=== PATIENT | female | born 1985 | race Caucasian/White ===

== ENCOUNTER 2021-05-19 00:21 | Day surgery (SDC) | payer BC, SELFPAY ==
[2021-05-07 14:49] VITALS: BMI 36.6
[2021-05-19 12:28] VITALS: BP 128/91; PULSE 112; RESP 18; TEMP 36.6; O2SAT 97
--- NOTE | 2021-05-19 12:38 | WPDANESEPPF ---
Anes - Initial Pre Proc Eval Procedure: Operation Date: 05/19/21 13:45 Proposed Procedures p Colonoscopy - Shai Lew MD Date/Time: 05/19/21 12:38 Surgeon: Shai Lew MD Pre Op Diagnosis: diarrhea Patient Data Age: 35 Gender: F Height: 1.57 m Weight: 88.1 kg Last Vital Signs Temp 36.6 C 05/19/21 12:28 Pulse 112 H 05/19/21 12:28 Resp 18 05/19/21 12:28 BP 128/91 H 05/19/21 12:28 Pulse Ox 97 05/19/21 12:28 Allergies Allergy/AdvReac Type Severity Reaction Status Date / Time No Known Allergies Allergy Verified 05/19/21 12:27 Home Medications Medication Instructions Recorded Confirmed Type amitriptyline 25 mg tablet 25 mg PO QHS 03/25/21 05/07/21 History diphenoxylate-atropine 2.5 1 tablet PO QID PRN 03/25/21 05/07/21 History mg-0.025 mg tablet hyoscyamine sulfate 0.125 mg PO Q4H PRN 05/07/21 05/07/21 History Patient hx anesthesia problems: none Family hx anesthesia problems: none Results Review: All pre-operative results and documents have been reviewed as part of the pre-operative evaluation. [facility] Past Medical History Medical History Factor 5 Leiden mutation, heterozygous Obese Surgical History Surgical History Hx of tonsillectomy Previous section Social History Social History Smoking status: Never smoker Alcohol intake: never Substance use: never Living arrangements: with family Spiritual care concerns: No Anes - Eval Final PreProcedure Day of Procedure 05/19/21 12:38 Patient weight: obese Heart: regular rate and rhythm Lungs: clear to auscultation Airway: Mallampati scale class II Neurological: alert and oriented Last oral intake: >/= 8 hours ASA classification: II Emergent: no Anesthetic plan: proceed Anesthesia type and monitoring: general GIVS and standard monitoring Results Review: All pre-operative results and documents have been reviewed as part of the pre-operative evaluation. Informed Consent: The patient's anesthetic plan and its attendant risks and benefits were discussed with the patient/family/POA. Questions were solicited and answers provided to the satisfaction of the patient/family/POA.
[2021-05-19] MEDS: LACTATED RINGERS 1,000 ML 150 ML IV CONT (12:41)
--- NOTE | 2021-05-19 13:00 | PM.HPGS ---
History of Present Illness History of Present Illness Consent: Risks, benefits, and alternatives have been discussed and questions answered. Patient agrees to proceed with procedure. Chief complaint: diarrhea Narrative: Radha Donaldson is a 35 year old female with chronic loose stool, serology for celiac normal, never had colonoscopy Review of Systems Constitutional: Constitutional: Denies headache(s) and Denies weakness Eyes: Eyes: Denies blurry vision ENT: Reports Normal hearing present, Denies headache(s) and Denies neck pain Cardiovascular: Cardiovascular: Denies chest pain and Denies dyspnea Respiratory: Respiratory: Denies dyspnea Gastrointestinal: Gastrointestinal: Reports no additional gastrointestinal complaints Genitourinary: Genitourinary: Denies dysuria Musculoskeletal: Musculoskeletal: Denies neck pain Integumentary/Breasts: Skin/Breast: Denies dry skin Neurologic: Reports Normal hearing present, Denies headache(s) and Denies weakness Psychiatric: Psychiatric: Denies anxiety Endocrine: Endocrine: Denies change in body appearance Hematologic/Lymphatic: Hematologic/Lymphatic: Denies easy bleeding Allergic/Immunologic: Allergic/Immunologic: Denies urticaria PMF Past Medical History Medical History (Updated 05/19/21 @ 13:00 by Shai Lew MD) Diarrhea Factor 5 Leiden mutation, heterozygous Obese Surgical History Surgical History Hx of tonsillectomy Previous section Social History Social History Smoking status: Never smoker Alcohol intake: never Substance use: never Living arrangements: with family Spiritual care concerns: No Meds Home Medications and Allergies Home Medications Medication Instructions Recorded Confirmed Type amitriptyline 25 mg tablet 25 mg PO QHS 03/25/21 05/07/21 History diphenoxylate-atropine 2.5 1 tablet PO QID PRN 03/25/21 05/07/21 History mg-0.025 mg tablet hyoscyamine sulfate 0.125 mg PO Q4H PRN 05/07/21 05/07/21 History Allergies Allergy/AdvReac Type Severity Reaction Status Date / Time No Known Allergies Allergy Verified 05/19/21 12:27 Vital Signs Vital Signs - 24 hr 05/19/21 12:28 Temperature 97.8 F Pulse Rate 112 H Respiratory Rate 18 Blood Pressure 128/91 H Pulse Oximetry 97 Exam Const: General: comfortable and no acute distress HENMT: General nose exam: Normal nares present Eyes: General: appearance normal, both eyes and all related structures Neck: Neck: no JVD Resp: Auscultation: clear to auscultation bilaterally Cardio: Rate: regular rate Rhythm: regular rhythm GI: Inspection: non-distended GI Palp: Yes Soft to palpation Skin: General skin exam: normal color Neuro: General: gait normal Speech: normal speech Extrem: General: normal to inspection Psych: Mental Status: mental status grossly normal Assessment and Plan Assessment and plan (1) Diarrhea: Code(s): R19.7 - Diarrhea, unspecified Status: Acute Assessment and Plan: probably ibs related but will proceed with colonoscoy and random bx
[2021-05-19 13:03] VITALS: BP 106/72; PULSE 119; RESP 25; O2SAT 93
[2021-05-19 13:13] VITALS: BP 128/68; PULSE 71; RESP 16; O2SAT 96
[2021-05-19 13:23] VITALS: BP 117/83; PULSE 99; RESP 23; O2SAT 99
== END 2021-05-19 13:45 | disposition home or self-care (01) ==
PROVIDERS: PCP Internal Medicine; Visit Provider Internal Medicine Gastroenterology
PROC: 0DJD8ZZ Inspection of Lower Intestinal Tract, Via Natural or Artificial Opening Endoscopic (ICD-10-PCS; CPT 45378; principal; 2021-05-19 13:45)
DX: K52.9 Noninfective gastroenteritis and colitis, unspecified (principal); D68.51 Activated protein C resistance; E66.9 Obesity, unspecified; Z68.35 Body mass index [BMI] 35.0-35.9, adult
CPT/HCPCS: 45380; 88305; J2001; J2704; J7120

== ENCOUNTER 2024-11-26 14:56 | Outpatient (CLI) | payer BC, SELFPAY ==
--- NOTE | ~2024-11-26 | MR_ITS ---
EXAMINATION: MR brain/brain stem wo/w con DATE: 11/26/2024 15:41 INDICATION: Blurred vision. TECHNIQUE: Magnetic resonance imaging (MRI) of the brain and brainstem was performed without and with 20 mL MultiHance intravenous contrast. COMPARISON: None. FINDINGS: There is no intracranial hemorrhage, acute infarction, or abnormal intracranial mass lesion. There are 3 foci of increased T2-weighted signal intensity in the cerebral white matter, which is normal for the patient's age. The ventricles are normal in size. There is mild mucosal thickening in the ethmoid sinuses. The orbits are normal. The mastoid air cells are normal. IMPRESSION: 1. Normal brain. Reviewed, dictated and finalized at location E. IMPRESSION: 1. Normal brain.
--- OUTSIDE RECORDS SUMMARY | 2024-11-26 15:04 | XMS_ITS | Clinical Summary ---
Author Organization [facility] Address [address] [place] [address] Care Team Providers Care International Marketing Intern Name Role Phone Estefany Lamar MD Primary Care Provider [phone] Allergies Active Allergy Reactions Criticality Noted Date Comments Ketorolac Tromethamine Nausea And Vomiting 09/04 Medications prenat.vits,rosa maria, [id number] tablet Take 1 tablet by mouth daily Active estradioL (Estrace) 2 mg tablet Take 1 tablet (2 mg total) by mouth 2 (two) times a day 60 tablet 2 3 Active enoxaparin (LOVENOX) 40 mg/0.4 mL syringe Inject 0.4 mL (40 mg total) under the skin daily 12 mL 3 3 Active progesterone 50 mg/mL injection Inject 25mg to 100mg IM daily as directed by 20 mL 2 3 Active docusate sodium (COLACE) 50 mg capsuleIndicatio ns:constipation Take 1 capsule (50 mg total) by mouth 2 (two) times a day as needed for constipation Active chorionic gonadotropin (PREGNYL) 10,000 unit injection 3 Active ciclopirox (LOPROX) 0.77 % cream Apply topically 2 (two) times a day 2 Active diphenoxylate-at ropine (LOMOTIL) 2.5-0.025 mg per tablet Take 1 tablet by mouth daily as needed 2 Active doxycycline 100 mg tablet 4 Active leuprolide 1 mg/0.2 mL kit 3 Active Active Problems Problem Noted Date Diagnosed Date Prediabetes 02/10/2021 Anal skin tag 02/09/2021 [place] (generalized anxiety disorder) 02/09/2021 Irritable bowel syndrome with diarrhea 1 Recurrent major depressive disorder 02/09/2021 Overview (05/12/2023): Previously was on amitriptyline. Currently on sertraline. Stable symptoms. No suicidal ideations at this time. Abdominal pain 07/08/2020 Assessment & Plan (07/08/2020 1:42 PM CDT): Chronic diarrhea may be IBS. Lower concern for malabsorptive syndrome or IBD. Will get stool studies and labs as ordered. Right lower pain may be pelvic in nature although reassuring pelvic exam. Given recent ectopic , will get pelvic ultrasound to r/o complications from this. Essential tremor 07/06/2020 Overview (07/08/2020): . History of ectopic 07/06/2020 Overview (07/08/2020): Had this in Feb 2020, went through two rounds of methotrexate Heterozygous factor V Leiden mutation 05/14/2019 Overview (07/08/2020): Last A/P: Additionally, we discussed Ms. Donaldson's options for control. In the setting of her thrombophillia, we do not recommend any estrogen-containing contraceptives. The CDC rates progestin-only contraception as a 2, where the advantages outweigh the overall risk, in a patient with an inheritated thrombophilia. Therefore, Ms. Donaldson would be a suitable candidate for depo- provera, the Mirena IUD, and the minipill. Resolved Problems Problem Noted Date Diagnosed Date Resolved Date product of IVF 05/14/2019 07/06/2020 Overview (05/14/2019): -Planning on frozen embryo transfer for this subsequent -Discussed need for echo given IVF Immunizations Immunization Administration Dates Next Due Influenza, Unspecified 12/05/2019(Deferred: Nadiya ent Refused) MMR 10/25/2019 Pfizer SARS-CoV-2 Monovalent Vaccination (12+ Yrs) PURPLE 11/21/2020,10/30/2020 Tdap 11/23/2017 Surgical History Surgery Date Site/Laterality Comments TONSILECTOMY, ADENOIDECTOMY, BILATERAL MYRINGOTOMY AND TUBES 03/06/2004 - 03/05/2005 KNEE SURGERY SECTION, LOW TRANSVERSE OVUM / OOCYTE RETRIEVAL 06/23/2022 egg retrieval TRANSFER EMBRYO INTRAUTERINE 06/26/2022 Embryo Transfer 1 day 3 Medical History Medical History Date Comments Factor V Leiden product of IVF 05/14/2019 -Planning on frozen embryo transfer for this subsequent -Discussed need for echo given IVF Family History Medical History Relation Name Comments Heart attack Maternal Grandfather Blood Clot Maternal Grandmother Cholelithiasis Maternal Grandmother Colon cancer Maternal Grandmother Diabetes Maternal Grandmother Pancreatic cancer Maternal Grandmother Blood Clot Mother Diabetes Mother Hypertension Mother Blood Clot Other aunt Hypertension Paternal Grandmother Relation Name Status Comments Father Alive Maternal Grandfather Maternal Grandmother Mother Alive Other aunt Alive Paternal Grandmother Social History Tobacco Use Types Packs/Day Years Used Date Smoking Tobacco: Never Smokeless Tobacco: Never Alcohol Use Standard Drinks/Week Comments Never 0 (1 standard drink = 0.6 oz pur e alcohol) AUDIT-C Answer Date Recorded Frequency of Alcohol Consumption Never 04/10/2019 Average Number of Drinks Not on file 020 Frequency of Binge Drinking Not on file 07/2019 PHQ-2 Answer Date Recorded PHQ-2 Total Score (If total score is 3 or more points, staff should administer the PHQ-9) 0 07/06/2020 Personal Safety Answer Date Recorded Getting School Help Needed Not on file 08/11 Comments No Sex and Gender Information Value Date Recorded Sex Assigned at Not on file Legal Sex Female 6:03 AM HVAC SERVICE TECH Gender Identity Female 10/23/2019 1:23 PM CDT Sexual Orientation Lesbian 10/23/2019 1: 23 PM CDT Obstetrics History Para Term AB IAB SAB Ectopic Multiple Livin g Live Births 2 1 1 1 1 1 1 Date Outcome GA Total Labor Labor/2nd/3rd Weight Sex Type Anes PTL Nina A1 A5 Name Clin 12/23 17 Term 3.005 kg (6 lb 10 oz) F CS-LTra nv Living 02/23 20 Ectopic ECTOPIC Comments 2018 - IVF 02/2020 - MTX x2 Last Filed Vital Signs Vital Sign Reading Time Taken Comments Blood Pressure 117/82 05/14/2023 11:12 AM CDT Pulse 70 05/14/2023 11:12 AM CDT Temperature 37 C (98.6 F) 05/14/2023 11:12 AM CDT Respiratory Rate 20 05/14/2023 11:12 AM CDT Oxygen Saturation 99% 05/14/2023 11:12 AM CDT Inhaled Oxygen Concentration - - Weight 93 kg (205 lb) 05/14/2023 11:12 AM CDT Height 157.5 cm (5' 2) 05/12/2023 10:13 AM HVAC SERVICE TECH Body Mass Index 37.49 05/12/2023 10:13 AM HVAC SERVICE TECH Plan of Treatment Health Maintenance Due Date Last Done Comments Hepatitis B Screening 08/17/2005 Regular Well Visit/Exam 18-64 08/17/2005 Pneumococcal vaccine <65 (1 of 2 - PCV) 08/17/2006 Zoster Vaccine (1 of 2) 08/17/2006 HPV Vaccines (1 - 3-dose SCDM series) 08/17/2014 Varicella Vaccines (1 of 2 - 13+ 2-dose series) 11/22/2019 Covid-19 Vaccine (3 - Pfizer risk series) 12/19/2020 11/21/2020, 10/30/2020 Depression Screening 07/06/2021 07/06/2020 Cervical Cancer Screening 03/29/2023 03/29/2022, 05/2020 Influenza Vaccine (#1) 2024 DTaP/Tdap/Td Vaccine (2 - Td or Tdap) 11/24/2027 Hepatitis C Screening Completed 02/04/2022, 020 Procedures Procedure Name Priority Date/Time Associated Diagnosis Comments HEPATITIS C ANTIBODY Routine 02/04/2022 12:04 PM HVAC SERVICE TECH Screening examination for venereal disease PAP ONLY Routine 07/06/2020 4:31 PM CDT from Last 3 Months or Most Recently Relevant to Health Maintenance Results * Hepatitis C antibody (02/04/2022 12:04 PM HVAC SERVICE TECH) Hep C Ab Nonreactive Nonreactive TANISHA SEYMOUR Comment:Antibodies to HCV no t detected. Does NOT exclude the possibility of recent exposure to HCV. Current interpretive data was last revised on 21 Blood 02/04/2022 12:0 4 PM HVAC SERVICE TECH 02/04/2022 5:51 PM HVAC SERVICE TECH us Rosamaria John MD LAB MICROBIOLOGY - GENERAL OR DERABLES Final Result [facility] Department [place] [address] * Pap Only (07/06/2020 4:31 PM CDT) CLINICAL INFORMATION: Franko Pederson Comment:NO HX OF ABNORMALS LMP Franko Pederson Comment:N/A Previous Pap Franko Pederson Comment:NONE GIVEN Prev. Bx Franko Pederson Comment:NONE GIVEN SOURCE: Franko Pederson Comment:Cervix, Endocervix Pap, specimen adequacy Franko Pederson Comment: Satisfactory for evaluation. Endocervical/transformation zone component present. Age and/or menstrual status not provided HPV interp Franko Pederson Comment:Negative for intraep ithelial lesion or malignancy. Turning Machine Operator [facility] st Adama Pederson Comment: KMS, CT(ASCP) CT Screening location: [place] [address] [place] [address] Comment Franko Pederson Comment: EXPLANATORY NOTE: The Pap is a screening test for cervical cancer. It is not a diagnostic test and is subject to false negative and false positive results. It is most reliable when a satisfactory sample, regularly obtained, is submitted with relevant clinical findings and history, and when the Pap result is evaluated along with historic and current clinical information. 07/06/2020 4:31 PM CDT 07/07/2020 5:55 AM CDT us Estefany Lamar MD LAB CYTOLOGY ORDERABLES F inal Result [facility] [address] [place] [address] from Last 3 Months or Most Recently Relevant to Health Maintenance Insurance [facility] P[facility] PPO [place] ANTH ACCESS Advance Directives For more information, please contact: [phone] * Full Code (Latest Code Status on File) Date Activated Date Inactivated Comments 06/23/2022 9:20 AM 06/24/2022 5:06 AM Care Teams International Marketing Intern Relationship Specialty Start Date End Date Estefany Lamar MD PCP - General Family Medicine 07/06/20
--- OUTSIDE RECORDS SUMMARY | 2024-11-26 15:04 | XMS_ITS | Clinical Summary ---
Author Organization [facility] Care Team Providers Care Freight Car Inspector Name Role Phone Unavailable Primary Care Provider Unavailabl e Social History Tobacco Use Types Packs/Day Years Used Date Smoking Tobacco: Never Assessed Comments Unknown Sex and Gender Information Value Date Recorded Sex Assigned at Not on file Legal Sex Female 11:10 AM CDT Gender Identity Not on file Sexual Orientation Not on file Plan of Treatment Health Maintenance Due Date Last Done Comments Hepatitis C Virus (HCV) Screening 1987 Hepatitis B Immunization (1 of 3 - 19+ 3-dose series) 08/17/2006 Pap Smear 08/17/2008 Human Papillomavirus (HPV) Immunization (1 - 3-dose SCDM series) 08/17/2014 Cervical Cancer Screening (CCS) 08/17/2017 HPV/Cotest 08/17/2017 SARS-COV-2 Immunization ( season) 2023 11/21/2020, 10/30/2020 Influenza Immunization (#1) 2024 Respiratory Syncytial Virus (RSV) Immunization (Adult) (1 - 1-dose 75+ series) 08/17/2062 DTaP/Tdap/Td Immunization Discontinued 11/23/2017 TdaP Immunization Completed 11/23/2017 Meningococcal Immunization (ACWY) Aged Out No longer eligible based on patient's age to complete this topic Pneumococcal Immunization Combined Aged Out No longer eligible based on patient's age to complete this topic Rotavirus Immunization Aged Out No lo nger eligible based on patient's age to complete this topic
--- OUTSIDE RECORDS SUMMARY | 2024-11-26 15:04 | XMS_ITS | Clinical Summary ---
Author Organization [facility] Address [address] [place] [address] Care Team Providers Care Pulp Screen Operator Name Role Phone Sánchez Stewart MD Primary Care Provider Source Comments [facility],non-owned Affiliates and Associated Physician Practices is amultiple site organization consisting of ambulatory clinics and hospital sitesin [place], [place], [place] and [place]. This disclosure is being madepursuant to the Care Everywhere program and may not contain all information available regarding this patient. Last updated 17.[facility] Allergies No known active allergies Medications * Be aware that medications may not be up to date on this document. Alwaysverify current medications with the patient. No known medications Active Problems No known active problems Immunizations Immunization Administration Dates Next Due MMR 10/25/2019 Social History Tobacco Use Types Packs/Day Years Used Date Smoking Tobacco: Never Assessed Comments Unknown Sex and Gender Information Value Date Recorded Sex Assigned at Not on file Legal Sex Female 11:42 AM CDT Gender Identity Not on file Sexual Orientation Not on file Plan of Treatment Health Maintenance Due Date Last Done Comments HIV SCREENING 08/17/2002 HEPATITIS C SCREENING 08/13/2005 DTAP/TDAP/TD VACCINES (1 - Tdap) 08/17/2006 HEPATITIS B VACCINE (1 of 3 - 19+ 3-dose series) 08/17/2006 HPV VACCINE (1 - 3-dose SCDM series) 08/17/2014 DEPRESSION SCREENING 03/06/2024 COVID-19 VACCINE ( - 2023-2 5 season) 2024 INFLUENZA VACCINE (#1) 2024 ZOSTER VACCINE (1 of 2) 08/17/2037 HIB VACCINE Aged Out No longer eligi ble based on patient's age to complete this topic MENINGOCOCCAL (Group B) VACC INE SHARED DECISION-MAKING Aged Out No longer eligibl e based on patient's age to complete this topic MENINGOCOCCAL GROUPS A/C/Y/W VACCINE Aged Out No longer eligible b ased on patient's age to complete this topic PNEUMOCOCCAL VACCINE Aged Out No long er eligible based on patient's age to complete this topic Insurance ANTHEM ANTHEM Care Teams Pulp Screen Operator Relationship Specialty Start Date End Date Sánchez Stewart MD [address] [place] [phone] PCP - General 4/30/21
--- OUTSIDE RECORDS SUMMARY | 2024-11-26 15:04 | XMS_ITS | Clinical Summary ---
Author Organization [facility] Address [address] [place] [id number] Phone Care Team Providers Care Boiler Assistant Operator Name Role Phone Unavailable Primary Care Provider Unavailabl e Social History Tobacco Use Types Packs/Day Years Used Date Smoking Tobacco: Never Assessed Comments Unknown Sex and Gender Information Value Date Recorded Sex Assigned at Not on file Legal Sex Female 1:56 PM VB NET DEVELOPER Gender Identity Not on file Sexual Orientation Not on file Plan of Treatment Health Maintenance Due Date Last Done Comments HEPATITIS B VACCINES (1 of 3 - 19+ 3-dose series) 08/17/2006 HPV/Cotest (21-29) 08/17/2008 HPV VACCINES (1 - 3-dose SCDM series) 08/17/2014 CERVICAL CANCER SCREENING 08/17/2017 HPV/Cotest (30-65) 08/17/2017 PAP SMEAR 08/17/2017 INFLUENZA VACCINE (#1) 2024 COVID-19 Vaccine (3 - 2024- season) 2024, 10/30/2020 DTAP/TDAP/TD VACCINES (2 - Td or Tdap) 11/24/2027 Insurance [employer] BLUE PREFERRED
== END 2024-11-26 14:57 | disposition home or self-care (01) ==
PROVIDERS: PCP Internal Medicine; Visit Provider Nurse Practitioner
DX: H53.8 Other visual disturbances (principal)
CPT/HCPCS: 70553; A9577